=== PATIENT | female | born 1940 | race African-American/Black ===

== ENCOUNTER 2021-10-29 09:52 | Emergency (ER) | payer MEDICARE ==
[~2021-10-29] VITALS: Ht 165.1 cm; Wt 60.0 kg
[2021-10-29] MEDS ORDERED: LIDOCAINE HCL/PF 1% 10 MG/ML 5ML VIAL INFIL ONE (10:45)
[2021-10-29] MEDS ORDERED: LIDOCAINE HCL 1% 20ML VIAL (Pyxis) INJ INFIL NR (11:00)
[2021-10-29] MEDS ORDERED: ACETAMINOPHEN 325MG TABLET PO ONE (12:15)
[2021-10-29] MEDS ORDERED: TOPUD PO (13:16)
[2021-10-29 14:02] VITALS: BP 130/67
== END 2021-10-29 14:35 | disposition home or self-care (01) ==
LOC: ER 09:52
DX: S01.511A Laceration without foreign body of lip, initial encounter (principal); R22.0 Localized swelling, mass and lump, head; M79.621 Pain in right upper arm; R03.0 Elevated blood-pressure reading, without diagnosis of hypertension; W01.198A Fall on same level from slipping, tripping and stumbling with subsequent striking against other object, initial encounter; Y93.89 Activity, other specified; Y92.538 Other ambulatory health services establishments as the place of occurrence of the external cause; E11.22 Type 2 diabetes mellitus with diabetic chronic kidney disease; N18.6 End stage renal disease; Z99.2 Dependence on renal dialysis
CPT/HCPCS: 12011; 70450; 70486; 73060; 99284; J3490